=== PATIENT | female | born 1960 | race Caucasian/White ===

== ENCOUNTER 2022-05-15 10:43 | Outpatient (CLI) | payer OTHER, MEDICAID | END 2022-05-15 10:44 | disposition home or self-care (01) | LOC: CSHMAMMO 10:43 | PROVIDERS: ATTEND Family Medicine | DX: Z12.31 Encounter for screening mammogram for malignant neoplasm of breast (principal) | CPT/HCPCS: 77063; 77067 ==

== ENCOUNTER 2023-10-21 08:06 | Outpatient (CLI) | payer OTHER, MEDICAID | END 2023-10-21 08:07 | disposition home or self-care (01) | LOC: CSHMRI 08:06 | PROVIDERS: ATTEND Physician Assistant | DX: Z01.818 Encounter for other preprocedural examination (principal); M25.312 Other instability, left shoulder; M25.512 Pain in left shoulder; Z95.810 Presence of automatic (implantable) cardiac defibrillator; M75.122 Complete rotator cuff tear or rupture of left shoulder, not specified as traumatic; M19.012 Primary osteoarthritis, left shoulder; M89.8X1 Other specified disorders of bone, shoulder; M62.512 Muscle wasting and atrophy, not elsewhere classified, left shoulder | CPT/HCPCS: 71045 ==

== ENCOUNTER 2023-12-17 11:36 | Outpatient (CLI) | payer OTHER, MEDICAID | END 2023-12-17 11:37 | disposition home or self-care (01) | LOC: CSHMAMMO 11:36 | PROVIDERS: ATTEND Family Medicine | DX: Z12.31 Encounter for screening mammogram for malignant neoplasm of breast (principal); Z13.820 Encounter for screening for osteoporosis; N64.89 Other specified disorders of breast; M85.89 Other specified disorders of bone density and structure, multiple sites | CPT/HCPCS: 77067; 77080 ==

== ENCOUNTER 2024-01-01 13:01 | Outpatient (CLI) | payer OTHER, MEDICAID | END 2024-01-01 13:02 | disposition home or self-care (01) | LOC: CSHMAMMO 13:01 | PROVIDERS: ATTEND Family Medicine | DX: N64.89 Other specified disorders of breast (principal); N63.23 Unspecified lump in the left breast, lower outer quadrant | CPT/HCPCS: 76642; 77065; G0279 ==